=== PATIENT | male | born 1965 | race African-American/Black ===

== ENCOUNTER 2016-10-18 09:33 | Day surgery (SDC) | payer BC ==
[~2016-10-18 09:33] MED LIST: Acetaminophen/HYDROcodone 325-10 MG Tab PO PRN; Ketorolac 10 MG Tab PO PRN; Lactated Ringers 1,000 ML IV SCH; Lidocaine 2% 5 ML SDV ONE; Midazolam 1 MG/ML 2 ML SDV ONE; Ondansetron 4 MG/2 ML SDV ONE; Propofol 200 MG/20 ML SDV ONE; ceFAZolin 2 GM in Premix Bag 1 BAG IV SCH; fentaNYL 100 MCG/2 ML SDV IVPUSH PRN; fentaNYL 100 MCG/2 ML SDV ONE
[2016-10-18] MEDS ORDERED: Acetaminophen/HYDROcodone 325-10 MG Tab PO PRN (10:00)
[2016-10-18] MEDS ORDERED: Ketorolac 10 MG Tab PO PRN (10:00)
--- NOTE | 2016-10-18 10:12 | PCM.PREANE ---
Preanesthetic Assessment - Procedure Proposed Procedure: Left shoulder arthroscopic surgery - Anesthesia/Transfusion/Family Hx Anesthesia History: Prior Anesthesia Reaction Other Type of Anesthesia Reaction Comment: pt states he "passed out for 4 hours after appendectomy in [place]" Family History of Anesthesia Reaction: No Transfusion History: No Prior Transfusion(s) Intubation History: Unknown - Review of Systems General: No Symptoms Pulmonary: No Symptoms (hx of asthma in past (no episode in years)) Cardiovascular: No Symptoms Gastrointestinal: Other (GERD - daily omeprazole) Neurological: Other (limited pain in left shoulder) Other: Reports: None - Physical Assessment NPO Status Date: 10/17/16 NPO Status Time: 22:00 Height: 5 ft 9 in Weight: 182 lb ASA Class: 2 Mental Status: Alert & Oriented x3 Airway Class: Mallampati = 1 Dentition: Reports: Normal Dentition Thyro-Mental Finger Breadths: 3 Mouth Opening Finger Breadths: 3 ROM/Head Extension: Full Lungs: Clear to Auscultation, Normal Respiratory Effort Cardiovascular: Regular Rate, Regular Rhythm, No Murmurs - Allergies Allergies/Adverse Reactions: Allergies Allergy/AdvReac Type Severity Reaction Status Date / Time aspirin Allergy upset Verified 10/15/16 12:36 stomach - Blood Blood Available: No - Anesthesia Plan Free Text/Narrative:: present for interview and exam. Pre-Op Medication Ordered: None - Acknowledgements Anesthesia Type Planned: General Anesthesia, Regional Block (possible interscalene) Pt an Appropriate Candidate for the Planned Anesthesia: Yes Alternatives and Risks of Anesthesia Discussed w Pt/Guardian: Yes Pt/Guardian Understands and Agrees with Anesthesia Plan: Yes PreAnesthesia Questionnaire Other HEENT History: wears glasses Respiratory History: Reports: Asthma Other Respiratory History: states past hx of asthma Gastrointestinal History: Reports: GERD, Other (See Below) Other Gastrointestinal History: has constant feeling of choking and need to clear throat Musculoskeletal History: Reports: Other (See Below) Other Musculoskeletal History: knee pain - Past Surgical History Head Surgeries/Procedures: Reports: None - SUBSTANCE USE Smoking Status *Q: Never Smoker Recreational Drug Use History: No - HOME MEDS Home Medications: Home Meds Celecoxib 1 tab PO DAILY 02/11/16 [History] Omeprazole 20 mg PO DAILY 02/11/16 [History] - CURRENT (IN HOUSE) MEDS Current Meds: Current Medications Hydrocodone Bitart/Acetaminophen ([place] 325-10 Mg) 1 - 2 tab PO Q4H PRN PRN Reason: Pain Fentanyl (Sublimaze) 50 mcg IVPUSH Q5M PRN PRN Reason: Pain (severe 7-10) Stop: 10/19/16 09:33 Lactated Ringer's (Ringers, Lactated) 1,000 mls @ 100 mls/hr IV ASDIRECTED LU Cefazolin Sodium/Dextrose 2 gm (/ Premix) 50 mls @ 100 mls/hr IV ONCALL LU Ketorolac Tromethamine (Toradol) 10 mg PO Q6H PRN PRN Reason: Pain Stop: 10/23/16 10:01 Discontinued Medications Acetaminophen/Hydrocodone Bitart ([place] 325-10 Mg) 1 - 2 tab PO Q4H PRN PRN Reason: Pain Fentanyl (Sublimaze) Confirm Administered Dose 300 mcg .ROUTE .STK-MED ONE Stop: 10/18/16 07:15 Lactated Ringer's (Ringers, Lactated) 1,000 mls @ 100 mls/hr IV ASDIRECTED LU Cefazolin Sodium/Dextrose 2 gm (/ Premix) 50 mls @ 100 mls/hr IV ONCALL LU Ketorolac Tromethamine (Toradol) 10 mg PO Q6H PRN PRN Reason: Pain Stop: 03/08/16 06:01 Lidocaine (Xylocaine-Mpf 2%) Confirm Administered Dose 5 ml .ROUTE .STK-MED ONE Stop: 10/18/16 07:15 Midazolam HCl (Versed 1 Mg/Ml) Confirm Administered Dose 2 mg .ROUTE .STK-MED ONE Stop: 10/18/16 07:15 Ondansetron HCl (Zofran) Confirm Administered Dose 4 mg .ROUTE .STK-MED ONE Stop: 10/18/16 07:15 Propofol (Diprivan 20 Ml) Confirm Administered Dose 200 mg .ROUTE .STK-MED ONE Stop: 10/18/16 07:15
[2016-10-18] MEDS ORDERED: Neostigmine Methylsulfate 1 MG/ML 5 ML Syringe ONE (11:54)
[2016-10-18] MEDS ORDERED: Rocuronium 10 MG/ML 10 ML Syringe ONE (11:54)
[2016-10-18] MEDS ORDERED: ceFAZolin 1 GM Vial ONE (12:30)
[2016-10-18] MEDS ORDERED: Sodium Chloride 0.9% 20 ML ONE (12:30)
[2016-10-18] MEDS ORDERED: ePHEDrine 50 MG/ML SDV ONE (12:48)
[2016-10-18 13:18] LABS: CHLORIDE,CL 106 mmol/L (98-110); SODIUM,NA 141 mmol/L (136-146)
[2016-10-18] MEDS ORDERED: Bupivacaine 0.25% 10 ML SDV ONE (13:18)
[2016-10-18] MEDS ORDERED: Bupivacaine 0.5% 10 ML SDV ONE (13:18)
--- NOTE | 2016-10-18 13:44 | PCM.OPNOTE ---
- General Post-Op/Procedure Note Date of Surgery/Procedure: 10/18/16 Operative Procedure(s): L shoulder arthroscopy with SAD, extensive bursectomy including biceps tenotomy and debridement of anterior labral tear Post-Op Diagnosis: L shoulder impingement, biceps tendonopathy Anesthesia Technique: General ET Tube, Regional Block Primary Surgeon: Lindsay Castillo Legal Records Clerk: Eusebio Delgadillo in mLs: 5 Condition: Good Free Text/Narrative:: #[id number]
[2016-10-18] MEDS ORDERED: hydrALAZINE 20 MG/ML SDV IVPUSH PRN (14:05)
--- NOTE | 2016-10-18 14:40 | PCM.POSTAN ---
POST ANESTHESIA ASSESSMENT - VITAL SIGNS Pulse Rate: 94 SaO2: 99 Resp Rate: 18 Blood Pressure: 159/95 (treated with hydralazine) - RESPIRATORY Respiratory Status: Respiratory Rate WNL, Airway Patent, O2 Saturation Stable - CARDIOVASCULAR CV Status: Pulse Rate WNL, Elevated Blood Pressure, Other (PVCs during case) Free Text/Narrative:: EKG done with SR, no PVCs shown. BP elevated and treated: could be pain exacerbated pressure. - GASTROINTESTINAL GI Status: No Symptoms - POST OP HYDRATION Hydration Status: Adequate & Stable - OBSERVATIONS Free Text/Narrative:: Difficulty awakening to clear status. Perhaps arousal delirium, pain, and a full bladder contributed.
[2016-10-18] MEDS ORDERED: Ketorolac 30 MG/ML SDV IVPUSH ONE (14:57)
--- NOTE | 2016-10-18 15:59 | PCM48HPAN ---
Post Anesthesia Note - EVALUATION WITHIN 48HRS OF ANESTHETIC Vital Signs in Normal Range: Yes Patient Participated in Evaluation: Yes Respiratory Function Stable: Yes Airway Patent: Yes Cardiovascular Function Stable: Yes Hydration Status Stable: Yes Pain Control Satisfactory: Yes (Home meds picked up by spouse.) Nausea and Vomiting Control Satisfactory: Yes Mental Status Recovered: Yes
[2016-10-18 16:53] VITALS: BP 121/61
--- NOTE | 2016-10-18 19:20 | OR ---
SURGEON: Lindsay Castillo MD DATE OF PROCEDURE: 10/18/2016 PREOPERATIVE DIAGNOSES: 1. Left shoulder impingement syndrome. 2. Left shoulder biceps tendinopathy. POSTOPERATIVE DIAGNOSES: 1. Left shoulder impingement syndrome. 2. Left shoulder biceps tendinopathy. 3. Left shoulder degenerative anterior labral tear. PROCEDURE: Left shoulder arthroscopy with: 1. Subacromial decompression with release of coracoacromial ligament and acromioplasty. 2. Extensive bursectomy including debridement of degenerative anterior labral tear and biceps tenotomy. SUPERVISOR QUILTING: Eusebio Delgadillo PA-C. ANESTHESIA: General with interscalene block. ESTIMATED BLOOD LOSS: 5 mL. TOURNIQUET TIME: 0 minutes. COMPLICATIONS: None. DVT PROPHYLAXIS: PAS boot and EVERT hose to the bilateral lower extremities. IMPLANTS USED: None. BRIEF HISTORY: Candice is a 51-year-old male, who has had complaint of progressive left shoulder pain. He had failed conservative treatment. Due to his lack of response to conservative treatment, I did recommend surgical intervention. The risks and goals of procedure were discussed with the patient and were documented preoperatively. He agreed to proceed. DESCRIPTION OF PROCEDURE: The patient was properly identified and brought to the operating room. He was transferred from the OR cart and placed on the operating room table in a supine position. General anesthesia was administered. After adequate anesthesia was obtained, the patient was placed in a beach-chair type position. His head was secured. Care was taken to pad all bony prominences. The left upper extremity was then prepped in standard fashion using ChloraPrep solution. It was then sterilely draped. A time-out was performed to ensure correct site and procedure. Preoperative antibiotics were given. The surgical site had been marked preoperatively. Bony landmarks were marked with a marking pen. Approximately 30 mL of normal saline was introduced into the glenohumeral joint. A posterior portal was established. Blunt trocar and cannula were introduced into the glenohumeral joint. Camera, inflow, and outflow were assembled. The rotator interval was identified. Mild synovitis was noted. An anterior portal was then established. The subscapularis was visualized and probed and found to be intact. No loose bodies were within the subscapular recess. The biceps was then inspected. There was degenerative fraying at its insertion. There appeared to be some degenerative fraying along the superior labrum and anterior labrum as well. The biceps was pulled into the joint. Longitudinal tearing and synovitis was noted distally. I elected to proceed with a biceps tenotomy. Using electrocautery, the biceps was cut from its attachment to the superior labrum. The biceps retracted easily back into the biceps tendon sheath. The attachment point was then smoothed. The anterior labrum also showed degenerative fraying which was resected with a shaver to a stable remnant. Both the humeral head and glenoid were inspected and no significant degenerative changes were found. The posterior labrum appeared to be intact. I then entered the axillary pouch. No loose bodies were identified. The arm was then brought into an abducted and externally rotated position. The bare area was noted posteriorly. As I progressed anteriorly, minor degenerative fraying was noted at the rotator cuff insertion point. This was debrided with a shaver. No full-thickness tear was noted. The arm was then brought back into a neutral position. Instruments were removed from the glenohumeral joint. I then entered the subacromial space. Again camera, inflow, and outflow were assembled. I then established a lateral portal. Using a combination of the shaver and electrocautery, an extensive bursectomy was performed. He did have quite a bit of bursal tissue present. The acromion was noted to be a type 2 acromion preoperatively. The coracoacromial ligament was released. Using a 5.0 mm leslee, an acromioplasty was performed which provided good decompression of the subacromial space. The rotator cuff was then extensively probed and visualized. No tearing was noted. The instruments were then removed from the shoulder. The portal sites were closed with 3-0 nylon. Xeroform gauze was placed over the wound and a bulky dressing was applied. At the completion of the procedure, the case was turned over to Anesthesia for placement of the interscalene block. JULIETTE / DANIEL /[id number] NATALIIA
== END 2016-10-18 16:51 | disposition home or self-care (01) ==
LOC: MW.SDS 09:33
PROVIDERS: ATTEND Orthopaedic Surgery
PROC: 0RNK4ZZ Release Left Shoulder Joint, Percutaneous Endoscopic Approach (ICD-10-PCS; principal; 2016-10-18)
PROC: 0RBK4ZZ Excision of Left Shoulder Joint, Percutaneous Endoscopic Approach (ICD-10-PCS; 2016-10-18)
DX: M75.42 Impingement syndrome of left shoulder (principal); M75.22 Bicipital tendinitis, left shoulder; S43.492A Other sprain of left shoulder joint, initial encounter; M19.012 Primary osteoarthritis, left shoulder; J45.909 Unspecified asthma, uncomplicated; K21.9 Gastro-esophageal reflux disease without esophagitis; Z79.1 Long term (current) use of non-steroidal anti-inflammatories (NSAID); Z79.899 Other long term (current) drug therapy; Z88.6 Allergy status to analgesic agent; Z90.49 Acquired absence of other specified parts of digestive tract
CPT/HCPCS: 29823; 29826; 80048; 93005; J0360; J0690; J1885; J2250; J2405; J3010; J7120; 01630; 88304; J2704